=== PATIENT | male | born 1955 | race Caucasian/White ===

== ENCOUNTER 2021-10-03 08:59 | Emergency (ER) | payer SELFPAY ==
[2021-10-03 10:13] LABS: BASOPHIL 0.2 % (0-2); EOSINOPHIL 0.6 % (0-7); HCT 36.1 % (42.0-52.0); HGB 11.4 g/dl (13.2-18.0); LYMPHOCYTE 2.5 % (15-48); MCH 25.8 pg (25.0-31.0); MCHC 31.6 g/dL (32.0-36.0); MCV 81.7 fL (78.0-100.0); MONOCYTE 11.6 % (0-12); MPV 9.7 fL (6.0-9.5); NEUTROPHIL 84.5 % (41-80); NRBC 0; PLT 384 K/uL (150-400); RBC 4.42 M/uL (4.70-6.00); RDW 18.3 % (11.5-14.0); WBC 18.1 K/uL (4.0-10.5)
[2021-10-03 10:43] LABS: ALBUMIN 2.7 g/dL (3.4-5.0); BILIRUBIN - TOTAL 0.7 mg/dL (0.2-1.0); BUN/CREAT RATIO (CALC) 23.3 RATIO; CREATININE 1.5 mg/dL (0.67-1.17); GLOBULIN (CALCULATION) 4.4 g/dL; POTASSIUM 3.9 mmol/L (3.5-5.1); TOTAL PROTEIN 7.1 g/dL (6.4-8.2)
[2021-10-03] MEDS ORDERED: AZITHROMYCIN250 MG PO (11:30)
[2021-10-03] MEDS ORDERED: ONDANSETRON ODT4 MG PO (11:33)
[2021-10-03] MEDS ORDERED: LASIX20 MG PO (11:34)
== END 2021-10-03 11:35 | disposition home or self-care (01) ==
LOC: FER 08:59
PROVIDERS: Emergency Medicine
DX: I50.9 Heart failure, unspecified (principal); R11.2 Nausea with vomiting, unspecified; Z20.822 Contact with and (suspected) exposure to COVID-19; Z79.899 Other long term (current) drug therapy
CPT/HCPCS: 36415; 71045; 80053; 83880; 85025; 93005; J1940; J2405; U0002